=== PATIENT | male | born 1955 | race Caucasian/White ===

== ENCOUNTER 2019-10-08 16:36 | Inpatient (IN) | payer OTHER ==
[~2019-10-08] VITALS: Ht 167.6 cm; Wt 83.8 kg
[2019-10-08] MEDS ORDERED: ONDANSETRON PF 4 MG/2 ML VIAL. IV PRN (17:15)
[2019-10-08] MEDS ORDERED: ACETAMINOPHEN 325 MG TABLET PO PRN (17:15)
[2019-10-08 17:39] LABS: INFLUENZA A PATIENT NEGATIVE (NEGATIVE); INFLUENZA B PATIENT NEGATIVE (NEGATIVE)
--- NOTE | 2019-10-08 17:42 | EKG ---
[address] [address] Test Date: 2019-10-08 Test Time: 17:18:22 Pat Name: DAMIEN DORANTES Department: Room: [place] [address] Gender: M [employer]: : [id number] Requested By: RUTH AVENDANO Order Number: [id number] Reading MD: Measurements Intervals [place] Rate: 63 P: 38 RI: 168 QRS: 11 QRSD: 88 T: 20 QT: 388 QTc: 400 Interpretive Statements SINUS RHYTHM NORMAL ECG RI6.02 No previous ECG available for comparison
[2019-10-08] MEDS: IV NORMAL SALINE 1,000ML 1,000 ML IV SCH (17:45)
[2019-10-08] MEDS ORDERED: ATOR40TA59 PO (17:49)
[2019-10-08] MEDS ORDERED: HYDR-2145 PO (17:49)
[2019-10-08] MEDS ORDERED: ASPI81TA50 PO (17:49)
[2019-10-08] MEDS ORDERED: LISI30TA4 PO (17:49)
[2019-10-08 17:57] LABS: BGAS PH 7.5 (7.35-7.46)
[2019-10-08 18:01] VITALS: BP 102/67
[2019-10-08 18:04] LABS: BASO % 1 % (0-3); EOS % 0 % (0-3); HEMATOCRIT 47.5 % (39.0-53.0); HEMOGLOBIN 16.4 g/dL (13.0-17.5); LYMPH # 0.5 x10^3/uL (1.0-4.8); LYMPH % 16 % (24-48); MEAN CORPUSCULAR HEMOGLOBIN 33 pg (25-35); MEAN CORPUSCULAR HGB CONC 35 g/dL (31-37); MEAN CORPUSCULAR VOLUME 96 fL (79-100); MONO # 0.4 x10^3/uL (0.0-1.1); MONO % 12 % (0-9); NEUT # 2.4 x10^3uL (1.8-7.7); NEUT % 71 % (31-73); PLATELET COUNT 164 x10^3/uL (140-400); RED BLOOD COUNT 4.95 x10^6/uL (4.30-5.70); WHITE BLOOD COUNT 3.3 x10^3/uL (4.0-11.0)
--- NOTE | 2019-10-08 18:05 | RAD ---
AP chest x-ray HISTORY: Shortness of breath. FINDINGS: Heart size normal. No pneumothorax. No pleural effusions. Reticulonodular infiltrates at the basilar lower lobes and mild asymmetric left hilar density which could be due to overlapping perihilar infiltrate although underlying hilar mass or adenopathy is not excluded. Small calcified granuloma left lung base. Bones are unremarkable. IMPRESSION: Bilateral lower lobe reticulonodular densities could be atelectasis or lower lobe pneumonia. Asymmetric left hilar density likely related to overlapping perihilar pulmonary infiltrate although underlying hilar mass or adenopathy is not excluded for which follow-up will be of benefit to document that this resolves. Electronically signed by: Gorge Gonzáles MD (10/08/2019 6:02 PM) [id number]
[2019-10-08] MEDS ORDERED: PIP/TAZO PER PHARMACY MC PRN (18:30)
[2019-10-08 18:45] LABS: BILIRUBIN,URINE NEG (NEG); CLARITY,URINE CLEAR; COLOR,URINE YELLOW; GLUCOSE,URINE NEG (NEG)
[2019-10-08 18:46] LABS: ALBUMIN 2.9 g/dL (3.4-5.0); ALBUMIN/GLOBULIN RATIO 0.9 (1.0-1.7); CALCIUM 8.2 mg/dL (8.5-10.1); CREATININE 0.7 mg/dL (0.7-1.3); GFR 113.9; TOTAL BILIRUBIN 0.2 mg/dL (0.2-1.0); TOTAL PROTEIN 6.3 g/dL (6.4-8.2)
[2019-10-08 18:46] LABS: BACTERIA,URINE 0 /HPF (0-FEW); HYALINE CASTS, URINE FEW /HPF; NITRITE,URINE NEG (NEG); SQUAMOUS EPITHELIAL CELL,UR FEW /LPF; UROBILINOGEN,URINE 0.2 mg/dL (0.2 mg/dL)
[2019-10-08 18:57] LABS: POTASSIUM 2.9 mmol/L (3.5-5.1)
[2019-10-08] MEDS ORDERED: cloNIDine HCL 0.1 MG TABLET PO PRN (19:00)
[2019-10-08] MEDS ORDERED: ZOLPIDEM 5 MG TABLET. PO PRN (19:00)
[2019-10-08] MEDS ORDERED: HALOPERIDOL LACT 5 MG/ML VIAL. IM PRN (19:00)
[2019-10-08] MEDS ORDERED: diphenhydrAMINE 50 MG/ML VIAL IVP PRN (19:00)
[2019-10-08] MEDS ORDERED: ELECTROLYTE (ICU) PROTOCOL. MC PRN (19:00)
[2019-10-08] MEDS ORDERED: MAG HYDROX/AL HYDROX/SIMETH 30 ML ORAL.SUSP PO PRN (19:00)
--- NOTE | 2019-10-08 19:06 | NUR ---
Patient arrived via private car as a direct admit from Dr Goldstein's office. Patient states that he has had generalized weakness and not feeling well for the past 5 days. Patient admitted into room 6 in the ICU. Patient was made comfortable and placed on the monitor. family was at bedside. Orders was received and initiated. Patient flu negative. blood drawn and admission complete. No further issues at this time,. Will continue to monitor and care per plan of care.
[2019-10-08 19:34] LABS: BARBITURATES NEG (NEG); BENZODIAZEPINES NEG (NEG); CANNABINOIDS POS (NEG); COCAINE NEG (NEG); METHADONE NEG (NEG); OPIATES NEG (NEG); PHENCYCLIDINE NEG (NEG)
[2019-10-08 19:35] LABS: AMPHETAMINE/METHAMPHETAMINE NEG (NEG)
[2019-10-08 20:00] VITALS: BP 100/60
[2019-10-08] MEDS ORDERED: POTASSIUM CHLORIDE 20 MEQ TABLET.ER. PO ONE (20:00)
[2019-10-08] MEDS: ENOXAPARIN 40 MG/0.4 ML SYRINGE. SQ SCH (20:16)
[2019-10-08] MEDS: POTASSIUM CHLORIDE 20 MEQ TABLET.ER. PO SCH ×5 (20:16→20:37)
[2019-10-08] MEDS: ATORVASTATIN CALCIUM 20 MG TABLET PO SCH (20:17)
[2019-10-08] MEDS: LACTOBACILLUS RHAMNOSUS GG 1 CAPSULE. PO SCH (20:17)
[2019-10-08] MEDS: IPRATRPIUM/ALBUTEROL 0.5/2.5MG 3 ML NEBU. NEB SCH (20:33)
[2019-10-08] MEDS: PIPERACILLIN/TAZOBACTAM 4.5 GM in IV NORMAL SALINE 50ML 50 ML IV SCH (21:28)
[2019-10-08 22:00] VITALS: BP 94/54
[2019-10-09] VITALS (12 sets, daily range): BP systolic 90–108; BP diastolic 54–69
[2019-10-09] MEDS ORDERED: ONDANSETRON PF 4 MG/2 ML VIAL. IVP PRN (02:30)
[2019-10-09] MEDS: IPRATRPIUM/ALBUTEROL 0.5/2.5MG 3 ML NEBU. NEB SCH ×4 (05:10→20:28)
[2019-10-09] MEDS: PIPERACILLIN/TAZOBACTAM 4.5 GM in IV NORMAL SALINE 50ML 50 ML IV SCH ×3 (05:42→21:28)
--- NOTE | 2019-10-09 06:36 | NUR ---
Shift Note: Pt is a/o x4, VSS (BP in 90s), Oxygen at 2 Liters NC added this am as pt's oxygen saturation was 88% on RA (91-92% on 2 liters), lungs are coarse, pt states he is not coughing too much up at this time. Discussed possible alcohol detox signs and symptoms w/patient and advised to let staff know if he needed anything for symptoms, pt agreed. Pt does continue to have nausea (zofran given w/relief noted by patient).
[2019-10-09 06:42] LABS: CALCIUM 7.8 mg/dL (8.5-10.1); CREATININE 0.7 mg/dL (0.7-1.3); GFR 113.9; POTASSIUM 4.1 mmol/L (3.5-5.1)
[2019-10-09] MEDS ORDERED: LISINOPRIL 10 MG TABLET PO SCH (09:00)
[2019-10-09] MEDS ORDERED: hydroCHLOROthiazide 25 MG TABLET PO SCH (09:00)
[2019-10-09] MEDS ORDERED: LOPERAMIDE 2 MG CAPSULE PO PRN (09:15)
[2019-10-09] MEDS: LACTOBACILLUS RHAMNOSUS GG 1 CAPSULE. PO SCH ×2 (09:41→20:20)
[2019-10-09] MEDS: ASPIRIN ENTERIC COATED 81 MG TABLET.DR. PO SCH (09:41)
[2019-10-09] MEDS ORDERED: IOHEXOL 350 MG/ML 100 ML VIAL. IV ONE (09:45)
[2019-10-09] MEDS: IV NORMAL SALINE 1,000ML 1,000 ML IV SCH ×2 (09:49→23:20)
[2019-10-09] MEDS ORDERED: CONTRAST GIVEN MC PRN (10:00)
--- NOTE | 2019-10-09 12:09 | RAD ---
PQRS Compliance Statement: One or more of the following individualized dose reduction techniques were utilized for this examination: 1. Automated exposure control 2. Adjustment of the mA and/or kV according to patient size 3. Use of iterative reconstruction technique CT CHEST WITH CONTRAST, PULMONARY ANGIOGRAM History: Elevated d-dimer and shortness of air. Comparison: None. Technique: Helical CT of the chest was performed after the administration of 100 cc of Omnipaque 350 intravenous contrast according to PE protocol. Axial and coronal reconstructions were obtained. 3-D MIP images were constructed to better evaluate the pulmonary arteries. Findings: Pulmonary arteries are adequately opacified. There is no evidence of pulmonary embolism. There is no thoracic aortic dissection. There are subcentimeter mediastinal and bilateral hilar lymph nodes. The hilar lymph nodes may be reactive. There is no sanjeev adenopathy. There is coronary artery disease. Great vessels are normal caliber. Cardiac size normal, no pericardial effusion. There is no pleural effusion. The central airways are patent. There are scattered groundglass nodules and tree-in-bud opacities in the bilateral lower lobes. Opacities are also seen in the left upper lobe. Calcified granuloma in the lingula. Discoid atelectasis in the lateral right lower lobe. Small cyst in segment 2 of the liver. Old compression fracture superior endplate of T12. Thoracic spine alignment is maintained. IMPRESSION: 1. There is no CT evidence of pulmonary embolus. Scattered groundglass nodules and tree-in-bud opacities in the left upper lobe and the bilateral lower lobes are likely infectious/inflammatory. Recommend CT chest follow-up 3 months after completion of medical therapy. Electronically signed by: Flavio Jorge MD (10/09/2019 12:06 PM) [id number]
--- NOTE | 2019-10-09 18:43 | NUR ---
PT UP TO BATHROOM AND AROUND ROOM TODAY. PLACE NEW IV FOR CT CHEST. CONTINUE IV ABX AND CURRENT CARE. PT PROGRESSING TOWARDS GOALS.
[2019-10-09] MEDS: ATORVASTATIN CALCIUM 20 MG TABLET PO SCH (20:20)
[2019-10-09] MEDS: ENOXAPARIN 40 MG/0.4 ML SYRINGE. SQ SCH (20:20)
[2019-10-10] VITALS (9 sets, daily range): BP systolic 100–128; BP diastolic 58–79
--- NOTE | 2019-10-10 02:35 | PN ---
DATE: SUBJECTIVE: A 64-year-old male in with pneumonia. The patient has positive D-dimer. CTA (NC) showed a ground glass nodules and tree-in-bud opacities in the left upper lobe and bilateral lower lobes, probably infectious. Followup CT in 3 months. The patient says he feels a little better. OBJECTIVE: VITAL SIGNS: Blood pressure hovers at low side 95/60, respirations 17, pulse 70, afebrile. GENERAL: The patient is alert and oriented. LUNGS: Diminished, coarse breath sounds throughout. CARDIOVASCULAR: Regular sinus rhythm. Potassium up to 4.1. ABDOMEN: Soft, nontender. IMPRESSION: Pneumonia of unspecified etiology, multiple lobe. Hypokalemia. The patient continued to be monitored carefully, make further evaluation on him as indicated. PLAN: As above. Also, acute respiratory distress. RUTH AVENDANO MD DR: YOHANA/cristian JOB#: [id number] / [id number]
[2019-10-10] MEDS: PIPERACILLIN/TAZOBACTAM 4.5 GM in IV NORMAL SALINE 50ML 50 ML IV SCH ×3 (05:13→20:46)
[2019-10-10] MEDS: IPRATRPIUM/ALBUTEROL 0.5/2.5MG 3 ML NEBU. NEB SCH ×4 (05:28→20:36)
[2019-10-10 06:18] LABS: BASO % 1 % (0-3); EOS % 0 % (0-3); HEMATOCRIT 44.4 % (39.0-53.0); HEMOGLOBIN 15.3 g/dL (13.0-17.5); LYMPH % 31 % (24-48); MEAN CORPUSCULAR HEMOGLOBIN 33 pg (25-35); MEAN CORPUSCULAR HGB CONC 34 g/dL (31-37); MEAN CORPUSCULAR VOLUME 97 fL (79-100); MONO # 0.5 x10^3/uL (0.0-1.1); MONO % 15 % (0-9); NEUT # 1.7 x10^3uL (1.8-7.7); NEUT % 52 % (31-73); PLATELET COUNT 155 x10^3/uL (140-400); RED CELL DISTRIBUTION WIDTH 13.1 % (11.5-14.5); WHITE BLOOD COUNT 3.3 x10^3/uL (4.0-11.0)
[2019-10-10 06:33] LABS: CREATININE 0.7 mg/dL (0.7-1.3); GFR 113.9; POTASSIUM 3.7 mmol/L (3.5-5.1)
[2019-10-10] MEDS: ASPIRIN ENTERIC COATED 81 MG TABLET.DR. PO SCH (07:38)
[2019-10-10] MEDS: LACTOBACILLUS RHAMNOSUS GG 1 CAPSULE. PO SCH ×2 (07:39→20:45)
[2019-10-10] MEDS: IV NORMAL SALINE 1,000ML 1,000 ML IV SCH ×2 (09:00→12:10)
--- NOTE | 2019-10-10 09:41 | NUR ---
Pt is able to verbalize understanding of poc. Pt on room air now and up to chair. Pt to be down graded and moved to floor per Cristiano. Yao Ambriz RN
--- NOTE | 2019-10-10 14:00 | PN ---
DATE: SUBJECTIVE: A 64-year-old male in with pneumonia. The patient has also sepsis. He is doing much better. OBJECTIVE: VITAL SIGNS: His blood pressure has come up into the low 100s, 100/58; respiratory rate 30; pulse 62; afebrile. GENERAL: The patient is alert and oriented. LUNGS: Crackles in the bases, however, improved. CARDIOVASCULAR: Regular sinus rhythm, S1, S2. ABDOMEN: Soft, nontender. EXTREMITIES: No clubbing, cyanosis or edema. NEUROLOGIC: The patient is stable. IMPRESSION: Pneumonia of unspecified etiology, multiple lobe and hypokalemia, resolved. The patient otherwise seems to be making good progress overall, leukopenia and hypokalemia all resolving, severe protein malnutrition. The patient continues to make good progress and an ICU status will be changed to and hopefully, ready for discharge. PLAN: As above. Continue with IV antibiotic therapy as indicated. RUTH AVENDANO MD DR: YOHANA/cristian JOB#: [id number] / [id number]
[2019-10-10] MEDS: ENOXAPARIN 40 MG/0.4 ML SYRINGE. SQ SCH (18:42)
[2019-10-10] MEDS: ATORVASTATIN CALCIUM 20 MG TABLET PO SCH (20:45)
[2019-10-11] MEDS: IV NORMAL SALINE 1,000ML 1,000 ML IV SCH (04:15)
[2019-10-11] MEDS: IBUPROFEN 400 MG TABLET. PO PRN (04:19)
[2019-10-11] MEDS: IPRATRPIUM/ALBUTEROL 0.5/2.5MG 3 ML NEBU. NEB SCH ×4 (04:25→20:40)
[2019-10-11 05:28] VITALS: BP 130/79
[2019-10-11] MEDS: PIPERACILLIN/TAZOBACTAM 4.5 GM in IV NORMAL SALINE 50ML 50 ML IV SCH ×3 (05:35→21:42)
[2019-10-11] MEDS: ASPIRIN ENTERIC COATED 81 MG TABLET.DR. PO SCH (08:29)
[2019-10-11] MEDS: LACTOBACILLUS RHAMNOSUS GG 1 CAPSULE. PO SCH ×2 (08:29→20:45)
[2019-10-11] MEDS: NICOTINE 21MG PATCH. TD SCH (09:30)
[2019-10-11] MEDS: predniSONE 20 MG TABLET PO SCH (09:45)
[2019-10-11 10:55] VITALS: BP 118/75
--- NOTE | 2019-10-11 14:58 | RAD ---
AP and Lateral Views of the Chest 10/11/2019 9:36 AM Indication: Shortness of breath Comparison: CT angiography of the chest October 09, 2019 Findings: There are bilateral reticular infiltrates, more prominent in the left mid and lower lung. No pneumothorax or effusion is seen. Heart size is normal. Bony thorax is grossly intact. IMPRESSION: Bilateral reticular infiltrates,, more prominent on the left, similar to CT findings Electronically signed by: Dale Biswas MD (10/11/2019 2:55 PM) [id number]
[2019-10-11 15:13] VITALS: BP 137/81
[2019-10-11] MEDS: ENOXAPARIN 40 MG/0.4 ML SYRINGE. SQ SCH (17:24)
[2019-10-11] MEDS ORDERED: levoFLOXacin 750 MG TABLET PO SCH (18:00)
[2019-10-11 19:32] VITALS: BP 137/80
[2019-10-11] MEDS: ATORVASTATIN CALCIUM 20 MG TABLET PO SCH (20:45)
[2019-10-11 23:02] VITALS: BP 154/81
--- NOTE | 2019-10-12 01:01 | PN ---
DATE: 10/08/2019 SUBJECTIVE: The patient is doing a little bit better, but still very weak, clammy as it were still very short of breath, just moving from one side of the room to the other, which is a very small room I might add. The patient is still very weak, having some respiratory difficulties. PHYSICAL EXAMINATION: VITAL SIGNS: Blood pressure 130/80, respiratory rate 18, pulse 70, afebrile, oxygen anywhere from 92-96, but that is pretty much standing still. GENERAL: The patient is alert and oriented, but this overall affect is diminished. LUNGS: Diminished, still some wheezing, tightness, crackles in the lungs. We will repeat a chest x-ray today to see if this pneumonia which he has had multiple lobe pneumonia has been improved or not, he is on double antibiotics, but in reality, he is not recovering as quickly as we had hoped. He still shows marked weakness, shortness of breath with minimal exertion and diaphoresis which is noted. IMPRESSION: Acute respiratory distress, multiple lobe pneumonia, nicotine withdrawal, generalized weakness, deconditioning. PLAN: PT, OT. Continue respiratory therapy treatments. RUTH AVENDANO MD DR: YOHANA/cristian JOB#: [id number] / [id number]
[2019-10-12] MEDS: IBUPROFEN 400 MG TABLET. PO PRN (01:29)
[2019-10-12] MEDS: IPRATRPIUM/ALBUTEROL 0.5/2.5MG 3 ML NEBU. NEB SCH (04:35)
[2019-10-12] MEDS: PIPERACILLIN/TAZOBACTAM 4.5 GM in IV NORMAL SALINE 50ML 50 ML IV SCH (05:46)
[2019-10-12 05:59] VITALS: BP 146/76
[2019-10-12 08:27] VITALS: BP 146/76
[2019-10-12] MEDS: LACTOBACILLUS RHAMNOSUS GG 1 CAPSULE. PO SCH (08:27)
[2019-10-12] MEDS: predniSONE 20 MG TABLET PO SCH (08:27)
[2019-10-12] MEDS: ASPIRIN ENTERIC COATED 81 MG TABLET.DR. PO SCH (08:27)
[2019-10-12] MEDS: NICOTINE 21MG PATCH. TD SCH (08:28)
[2019-10-12] MEDS ORDERED: amLODIPine BESYLATE 5 MG TABLET PO SCH (09:00)
[2019-10-12] MEDS ORDERED: PRED5TAB PO (09:44)
[2019-10-12] MEDS ORDERED: GUAI600T47 PO (09:44)
[2019-10-12] MEDS ORDERED: LACT1CAP19 PO (09:44)
[2019-10-12] MEDS ORDERED: LEVO750T31 PO (09:44)
[2019-10-12] MEDS ORDERED: AMLO5TAB10 PO (09:44)
--- NOTE | 2019-10-12 10:58 | NUR ---
Pt discharged home with . Pt was ambulatory off the unit. VSS. NAD. Denies pain. Discharge instructions and materials discussed with pt. Information on new medications provided to pt. Questions answered. PIV removed x2 without complication. All belongings accounted for. No falls or injury reported.
== END 2019-10-12 11:00 | disposition home or self-care (01) | DRG 871 ==
LOC: ICU 16:36 → 1 SOUTH 10-10 17:53
PROVIDERS: ADMIT Family Medicine; ATTEND Family Medicine
DX: A41.9 Sepsis, unspecified organism (principal); J18.9 Pneumonia, unspecified organism; E43 Unspecified severe protein-calorie malnutrition; F17.203 Nicotine dependence unspecified, with withdrawal; E87.6 Hypokalemia; D72.819 Decreased white blood cell count, unspecified; I10 Essential (primary) hypertension; E78.5 Hyperlipidemia, unspecified; I95.2 Hypotension due to drugs; Z68.29 Body mass index [BMI] 29.0-29.9, adult
CPT/HCPCS: 36415; 36600; 71045; 71046; 71275; 80048; 80053; 80307; 81001; 82550; 82803; 83605; 83690; 84145; 84484; 85025; 85379; 86738; 87040; 87804; 93005; 94640; 99406; J1650; J1956; J2405; J2543; J7512; Q9967; 97535; J7030

== ENCOUNTER → 2021-09-24 | Outpatient (CLI) | payer OTHER ==
[~2021-09-24] MED LIST: AMLO-186 PO; ASPI81TA50 PO; ATOR40TA59 PO; GUAI600T47 PO; HYDR-2145 PO; LACT1CAP19 PO; LEVO750T31 PO; LISI30TA4 PO; PRED5TAB PO
[2021-09-24 10:16] LABS: BASO # 0.1 x10^3/uL (0.0-0.2); BASO % 1 % (0-3); EOS # 0.3 x10^3/uL (0.0-0.7); EOS % 5 % (0-3); HEMOGLOBIN 15.8 g/dL (13.0-17.5); LYMPH # 1.7 x10^3/uL (1.0-4.8); LYMPH % 31 % (24-48); MEAN CORPUSCULAR HEMOGLOBIN 33 pg (25-35); MEAN CORPUSCULAR HGB CONC 34 g/dL (31-37); MEAN CORPUSCULAR VOLUME 95 fL (79-100); MONO # 0.5 x10^3/uL (0.0-1.1); MONO % 10 % (0-9); NEUT # 2.9 x10^3uL (1.8-7.7); NEUT % 53 % (31-73); PLATELET COUNT 337 x10^3/uL (140-400); RED BLOOD COUNT 4.84 x10^6/uL (4.30-5.70); WHITE BLOOD COUNT 5.4 x10^3/uL (4.0-11.0)
[2021-09-24 10:31] LABS: ALBUMIN 3.8 g/dL (3.4-5.0); ALBUMIN/GLOBULIN RATIO 0.9 (1.0-1.7); CALCIUM 9.4 mg/dL (8.5-10.1); CREATININE 0.8 mg/dL (0.7-1.3); POTASSIUM 3.9 mmol/L (3.5-5.1); TOTAL BILIRUBIN 0.5 mg/dL (0.2-1.0); TOTAL PROTEIN 7.9 g/dL (6.4-8.2)
[2021-09-24 18:02] LABS: CHOLESTEROL/HDL RATIO 5.1
== END ==
LOC: LAB 09:28
PROVIDERS: ATTEND Family Medicine
DX: I10 Essential (primary) hypertension (principal); E78.5 Hyperlipidemia, unspecified; E55.9 Vitamin D deficiency, unspecified; E78.49 Other hyperlipidemia
CPT/HCPCS: 36415; 80053; 80061; 84153; 85025; G0103